=== PATIENT | female | born 1960 | race Caucasian/White ===

== ENCOUNTER → 2017-05-27 | Outpatient (CLI) | payer BC, OTHER ==
[~2017-05-27] MED LIST: ASPIRIN EC81 M1 PO; MULTIVITAMINS1 EAC7 PO; ROBAXIN 750 MG750 M1 PO; SYNTHROID100 MCG PO; ZOCOR 10 MG TAB10 MG PO; ZYRTEC10 M2 PO
== END ==
LOC: RAD 01:10
DX: Z12.31 Encounter for screening mammogram for malignant neoplasm of breast (principal)

== ENCOUNTER → 2018-05-25 | Outpatient (CLI) | payer OTHER | LOC: CAT 11:25 | DX: Z13.6 Encounter for screening for cardiovascular disorders (principal); E78.00 Pure hypercholesterolemia, unspecified ==

== ENCOUNTER → 2019-05-06 | Outpatient (CLI) | payer BC, OTHER | LOC: RAD 08:54 | DX: Z12.31 Encounter for screening mammogram for malignant neoplasm of breast (principal) ==

== ENCOUNTER → 2020-04-10 | Outpatient (CLI) | payer BC, OTHER | LOC: SJCVCIMAG 12:55 | PROVIDERS: ATTEND Internal Medicine | DX: I10 Essential (primary) hypertension (principal); I34.9 Nonrheumatic mitral valve disorder, unspecified ==

== ENCOUNTER → 2020-05-08 | Outpatient (CLI) | payer BC, OTHER | LOC: BC 08:58 | PROVIDERS: ATTEND Obstetrics & Gynecology | DX: Z12.31 Encounter for screening mammogram for malignant neoplasm of breast (principal) ==

== ENCOUNTER → 2020-10-15 | Outpatient (CLI) | payer BC, OTHER ==
[~2020-10-15] VITALS: Ht 165.1 cm; Wt 82.6 kg
[~2020-10-15] MED LIST changes: +ADVIL200 M1 PO; +BENICAR20 MG PO; +L-LYSINE1000 M1 PO; +MELOXICAM7.5 MG PO; +NORVASC10 MG PO; +TYLENOL EXTRA500 MG PO; +ZINC50 M1 PO; +[UNRECOGNIZED DRUG - CODE] PO
[2020-10-15 10:22] VITALS: BP 135/78
--- NOTE | 2020-10-15 11:06 | NUR ---
Pain Clinic Assessment: 1. History of Osteoarthritis: na History of Rheumatoid Arthritis: na 2. Height: 5 ft. 5 in. 165.1 cm. Weight: 182.0 lb. oz. 82.555 kg. Patient's BMI: 30.3 3. Vital Signs: BP: 135/78 Pulse: 98 Resp: 16 Temp: 02 Sat: 97 ECG Mon: 4. Pain Intensity: 8 5. Fall Risk: Dizziness: N Needs help standing or walking: N Fallen in the last 3 months: N Fall risk comments: 6. Patient on Blood Thinner: None 7. History of Hypertension: Y 8. Opioid Therapy greater than 6 weeks: Opiate Contract Signed: 9. Risk Assessment Tool Provided: 0-low risk 10. Functional Assessment Tool: 11. Recreational Drug Use: Drug Type: Tobacco Use: Never Smoker Tobacco Type: Amount or Packs/day: How Many Years: Alcohol Use: No Frequency: Quant:
== END ==
LOC: RAD 06:58 → PAIN 06:58
PROVIDERS: ATTEND Anesthesiology Pain Medicine
DX: M47.814 Spondylosis without myelopathy or radiculopathy, thoracic region (principal); M25.78 Osteophyte, vertebrae; I10 Essential (primary) hypertension; Z98.890 Other specified postprocedural states

== ENCOUNTER → 2020-10-18 | Outpatient (CLI) | payer BC, OTHER ==
[~2020-10-18] VITALS: Ht 165.1 cm; Wt 82.6 kg
[2020-10-18 09:17] VITALS: BP 143/69
--- NOTE | 2020-10-18 09:25 | NUR ---
Pain Clinic Assessment: 1. History of Osteoarthritis: na History of Rheumatoid Arthritis: na 2. Height: 5 ft. 5 in. 165.1 cm. Weight: 182.0 lb. oz. 82.555 kg. Patient's BMI: 30.3 3. Vital Signs: BP: 143/69 Pulse: 98 Resp: 16 Temp: 02 Sat: 98 ECG Mon: 4. Pain Intensity: 4 TO 8 5. Fall Risk: Dizziness: N Needs help standing or walking: N Fallen in the last 3 months: N Fall risk comments: 6. Patient on Blood Thinner: None 7. History of Hypertension: Y 8. Opioid Therapy greater than 6 weeks: Opiate Contract Signed: 9. Risk Assessment Tool Provided: 0-low risk 10. Functional Assessment Tool: 11. Recreational Drug Use: Never Drug Type: Tobacco Use: Never Smoker Tobacco Type: Amount or Packs/day: How Many Years: Alcohol Use: No Frequency: Quant:
== END | disposition home or self-care (01) ==
LOC: PAIN 08:52
PROVIDERS: ATTEND Anesthesiology Pain Medicine
DX: M79.18 Myalgia, other site (principal); G89.29 Other chronic pain; M47.894 Other spondylosis, thoracic region; M54.9 Dorsalgia, unspecified; Z98.890 Other specified postprocedural states; Z79.899 Other long term (current) drug therapy

== ENCOUNTER → 2020-11-19 | Outpatient (CLI) | payer BC, OTHER ==
[~2020-11-19] VITALS: Ht 165.1 cm; Wt 82.6 kg
[2020-11-19 08:45] VITALS: BP 124/72
--- NOTE | 2020-11-19 09:03 | NUR ---
Pain Clinic Assessment: 1. History of Osteoarthritis: na History of Rheumatoid Arthritis: na 2. Height: 5 ft. 5 in. 165.1 cm. Weight: 182.0 lb. oz. 82.555 kg. Patient's BMI: 30.3 3. Vital Signs: BP: 124/72 Pulse: 82 Resp: 16 Temp: 02 Sat: 100 ECG Mon: 4. Pain Intensity: 0 now 5 w/activity 5. Fall Risk: Dizziness: N Needs help standing or walking: N Fallen in the last 3 months: N Fall risk comments: 6. Patient on Blood Thinner: None 7. History of Hypertension: Y 8. Opioid Therapy greater than 6 weeks: N Opiate Contract Signed: 9. Risk Assessment Tool Provided: 0-low risk 10. Functional Assessment Tool: 11. Recreational Drug Use: Never Drug Type: Tobacco Use: Never Smoker Tobacco Type: Amount or Packs/day: How Many Years: Alcohol Use: No Frequency: Quant:
== END | disposition home or self-care (01) ==
LOC: PAIN 11-15 07:12
PROVIDERS: ATTEND Anesthesiology Pain Medicine
DX: M79.18 Myalgia, other site (principal); M54.6 Pain in thoracic spine; M47.894 Other spondylosis, thoracic region; I10 Essential (primary) hypertension; G89.29 Other chronic pain; Z98.890 Other specified postprocedural states

== ENCOUNTER → 2021-03-14 | Outpatient (CLI) | payer BC, OTHER ==
[~2021-03-14] VITALS: Ht 162.6 cm; Wt 85.0 kg
[~2021-03-14] MED LIST changes: +CRESTOR10 MG PO
[2021-03-14 09:36] VITALS: BP 126/68
--- NOTE | 2021-03-14 09:59 | NUR ---
Pain Clinic Assessment: 1. History of Osteoarthritis: na History of Rheumatoid Arthritis: na 2. Height: 5 ft. 4 in. 162.6 cm. Weight: 187.4 lb. oz. 85.004 kg. Patient's BMI: 32.2 3. Vital Signs: BP: 126/68 Pulse: 96 Resp: 16 Temp: 02 Sat: 100 ECG Mon: 4. Pain Intensity: 6 IN AFTERNOON 5. Fall Risk: Dizziness: N Needs help standing or walking: N Fallen in the last 3 months: N Fall risk comments: 6. Patient on Blood Thinner: None 7. History of Hypertension: Y 8. Opioid Therapy greater than 6 weeks: N Opiate Contract Signed: 9. Risk Assessment Tool Provided: 0-low risk 10. Functional Assessment Tool: 11. Recreational Drug Use: Never Drug Type: Tobacco Use: Never Smoker Tobacco Type: Amount or Packs/day: How Many Years: Alcohol Use: No Frequency: Quant:
== END ==
LOC: PAIN 07:01
PROVIDERS: ATTEND Anesthesiology Pain Medicine
DX: M47.814 Spondylosis without myelopathy or radiculopathy, thoracic region (principal); M51.34 Other intervertebral disc degeneration, thoracic region; M25.70 Osteophyte, unspecified joint; G89.29 Other chronic pain; Z79.891 Long term (current) use of opiate analgesic; Z79.899 Other long term (current) drug therapy

== ENCOUNTER → 2021-04-24 | Outpatient (CLI) | payer BC, OTHER ==
[~2021-04-24] VITALS: Ht 162.6 cm; Wt 86.8 kg
--- NOTE | ~2021-04-24 | HPC ---
[facility] [address] [place] [address] PAIN MANAGEMENT CONSULTATION Name: VÍCTOR DRISCOLL Room #: REG [facility]#: [id number] Admission: 04/24/21 Attend Phys: Brandon Sellers DO Discharge: Date of : 56 Report #: [id number] THIS REPORT FOR: cc: Renard Henry MD,Brandon Rosales MD, DO ~ cc: Renard Henry MD DATE OF SERVICE: 04/24/2021 REFERRING PHYSICIAN: Dr. Renard Henry. CHIEF COMPLAINT: Upper back pain, intermittent neck pain. HISTORY OF PRESENT ILLNESS: As you know, the patient is a very pleasant 60-year-old female who has been followed by my partner, Dr. Alexandre Bhatti for upper back symptoms that began about 1 year and 1 month ago. She denies specific injury or trauma. She indicates pain is in the upper back area located between the scapula and rising towards the cervical spine. The patient has undergone trigger point injections, which provided transient improvement in symptoms. She has trialled conservative treatment, [id number] medications, rest and relaxation without benefit. She has recently undergone x-ray imaging of the thoracic spine for further evaluation. The findings of the upper thoracic area is negative for any pathology. There is no arthritic changes in the area of discomfort, the patient is complaining. There is some mild thoracic spondylosis without compression fractures or listhesis in the mid and lower thoracic area, unrelated to the patient's distribution of symptoms today. She returns today in followup visit to discuss options for treatment. As you are aware, the patient has a fairly significant kyphotic curvature of the thoracic spine, which does lead to a hyperlordotic cervical spine and possible impingement of the neural foramen in the cervical region. She has been referred to our clinic to discuss other treatment options for ongoing upper back and intermittent low neck pain. ALLERGIES: No known drug allergies. CURRENT MEDICATIONS: Rosuvastatin 10 mg once a day, meloxicam 7.5 mg b.i.d., vitamin C 1 tab per day, zinc 50 mg once a day, lysine 1000 mg once a day, ibuprofen 200 mg once a day, acetaminophen ES 500 mg p.r.n., amlodipine 10 mg per day, olmesartan 20 mg per day, cetirizine 10 mg per day, aspirin 81 mg per day, multivitamin 1 tab per day, levothyroxine 100 mcg per day. IMAGING: No new imaging is available. PHYSICAL EXAMINATION: VITAL SIGNS: Blood pressure 123/76, pulse is 93, respiratory rate 16 and unlabored. The patient is 100% on room air. Height 5 feet 4 inches tall, [place] [address] PAIN MANAGEMENT CONSULTATION Name: VÍCTOR DRISCOLL Room #: REG [facility].#: [id number] Admission: 04/24/21 Attend Phys: Brandon Sellers DO Discharge: Date of : 56 Report #: [id number] weight 191.4 pounds, BMI calculated 32.8. GENERAL: Well-developed, well-nourished, well-hydrated 60-year-old female appearing stated age, pain is rated today at 3 up to 7/10. HEENT: Normocephalic, atraumatic. Pupils are round and responsive. She is wearing a mask in compliance with COVID-19 regulations. EXTREMITIES: Show no clubbing, no cyanosis. No appreciable edema. MUSCULOSKELETAL: There is palpatory tenderness noted over the paraspinal musculature of the upper thoracic area as well as the rhomboids and along the distribution of the trapezius muscle. There is no specific trigger points. There are multiple tender points and they are bilateral in nature. Upper extremity strength appears symmetrical. She is intact to light touch from C5 to T1 dermatomes. Spurling's test is equivocal on the right and positive on the left. Deep tendon reflexes are symmetrical at biceps, brachialis and triceps. The patient has a significant kyphotic curvature of the mid thoracic area just inferior to the scapula radiating to approximately T10. She also has a hyperlordotic curvature of the cervical spine. Cervical provocation testing is met with increasing pain and increasing upper back symptoms. ASSESSMENT: 1. Cervical radiculopathy. 2. Cervical spondylosis with radiculopathy. 3. Myotomal cervical radiculopathy. 4. Chronic intractable pain. PLAN: 1. Based on today's physical exam and history the patient has provided, the description the patient uses in regards to pain as well as location of symptoms, it would appear the symptoms that she is experiencing are due to cervical radiculopathy. The distribution of pain is fixed to the C5 and C6 myotomal distribution. She does not have any dermatomal distributions at physical exam today, though by history, she does report intermittent symptoms. We reviewed the patient's thoracic imaging and I am not convinced that her symptoms that she is experiencing at present are related to the thoracic spine. In fact, there is minimal movement of the upper thoracic region due to the rigidity of the structures. It would be very unusual for someone to have facet arthropathy pain in the upper thoracic area. There is some mild thoracic findings, though these are not consistent with the patient's distribution and are not provokable with examination including deep inhalation and exhalation, which would be the most movement the patient will have in the thoracic spine. The findings do correlate more with a cervical radiculopathy and we discussed that with the patient today, specifically myotomal distribution radicular symptoms. After our discussion, we then conversed about the treatment options, following was discussed with the patient today. We discussed physical therapy and traction techniques as a treatment course. We discussed also in physical therapy posture training as the patient has a fairly [facility] [address] [place] [address] PAIN MANAGEMENT CONSULTATION Name: VÍCTOR DRISCOLL Room #: REG [facility]#: [id number] Admission: 04/24/21 Attend Phys: Brandon Sellers DO Discharge: Date of : 56 Report #: [id number] significant kyphotic curvature of the thoracic spine, which is leading to cervical hyperlordosis and I believe this is combining to cause the patient's current symptoms. We also discussed medication adjustments adding a nonsedating muscle relaxant to help with the upper back pain utilizing massage therapy and acupuncture to treat the symptoms at the thoracic level and cervical level. We discussed cervical epidural injection as a way to treat the symptoms and ultimately surgical decompression of the cervical spine. After reviewing the risks and benefits of all proposed treatment options, the patient requested a cervical epidural injection under fluoroscopic guidance to be provided today. 2. The patient was advised of the risks and benefits of a cervical epidural injection. These risks include but are not necessarily limited to bleeding, bruising, infection, worsening pain, no relief of pain, also risk of temporary or permanent muscle weakness, temporary or permanent nerve damage, possible paralysis, post-dural puncture headache and . The patient states understood and wished to proceed. 3. No medication changes made at today's visit. The patient will continue current medical therapy as prior prescribed. 4. We plan to see the patient back in followup visit in about 30 days. At that time, review the efficacy of today's cervical epidural injection in terms next in the series of cervical epidural injections would be recommended. PROCEDURE NOTE: DESCRIPTION OF PROCEDURE: C7-T1 cervical epidural steroid injection under fluoroscopic guidance. This is the first procedure of the first series that the patient is undergoing. After obtaining written consent, the patient was taken back to the fluoroscopy suite and placed in a prone position with separate pillows under chest and forehead to decrease cervical lordosis. The skin overlying the cervical area was prepped and draped in an aseptic fashion. The C7-T1 vertebral interspace was identified by AP fluoroscopy. The skin and subcutaneous tissue overlying the target site of injection was anesthetized using 3 mL of 1% lidocaine. A 20-gauge 3-1/2 inch Tuohy needle was advanced under fluoroscopic guidance toward the epidural space using a midline approach. The epidural space was identified using a loss of resistance to air technique. After negative aspiration for heme or cerebrospinal fluid, a total of 0.5 mL of Omnipaque was injected. A cervical epidurogram was confirmed using AP and oblique fluoroscopy. After negative aspiration for heme or cerebrospinal fluid, 5 mL of a solution containing 2 mL of 40 mg per mL 80 mg total triamcinolone along with 3 mL of lidocaine 1% was injected in increments. Contrast spread was noted from posterior epidural space. The needle was then retracted approximately alf and the needle track was flushed with 1 mL of 1% lidocaine. There were no apparent new sensory deficits in the upper extremities present following the [facility] [address] [place] [address] PAIN MANAGEMENT CONSULTATION Name: VÍCTOR DRISCOLL Room #: REG [facility]#: [id number] Admission: 04/24/21 Attend Phys: Brandon Sellers DO Discharge: Date of : 56 Report #: [id number] procedure. A sterile bandage was placed over the injection site. The heart rate, pulse oximetry and blood pressure were continuously monitored after the procedure. There were no apparent complications. The patient tolerated the procedure well and was carefully escorted in the recovery room in stable condition. After meeting discharge criteria, the patient was discharged home. By: [id number] Brandon Sellers DO /nt
[2021-04-24 10:01] VITALS: BP 126/76
--- NOTE | 2021-04-24 10:13 | NUR ---
Pain Clinic Assessment: 1. History of Osteoarthritis: na History of Rheumatoid Arthritis: na 2. Height: 5 ft. 4 in. 162.6 cm. Weight: 191.4 lb. oz. 86.819 kg. Patient's BMI: 32.8 3. Vital Signs: BP: 126/76 Pulse: 93 Resp: 16 Temp: 02 Sat: 100 ECG Mon: 4. Pain Intensity: 3, 6-7 in afternoon 5. Fall Risk: Dizziness: N Needs help standing or walking: N Fallen in the last 3 months: N Fall risk comments: 6. Patient on Blood Thinner: None 7. History of Hypertension: Y 8. Opioid Therapy greater than 6 weeks: N Opiate Contract Signed: 9. Risk Assessment Tool Provided: 0-low risk 10. Functional Assessment Tool: 11. Recreational Drug Use: Never Drug Type: Tobacco Use: Never Smoker Tobacco Type: Amount or Packs/day: How Many Years: Alcohol Use: No Frequency: Quant:
== END | disposition home or self-care (01) ==
LOC: PAIN 08:33
PROVIDERS: ATTEND Anesthesiology Pain Medicine
DX: M47.22 Other spondylosis with radiculopathy, cervical region (principal); G89.29 Other chronic pain; M54.2 Cervicalgia; Z98.890 Other specified postprocedural states; Z79.899 Other long term (current) drug therapy

== ENCOUNTER → 2021-05-07 | Outpatient (CLI) | payer BC, OTHER | LOC: BC 09:39 | PROVIDERS: ATTEND Family Medicine | DX: Z12.31 Encounter for screening mammogram for malignant neoplasm of breast (principal); N64.89 Other specified disorders of breast ==

== ENCOUNTER → 2021-05-28 | Outpatient (CLI) | payer BC, OTHER ==
[~2021-05-28] VITALS: Ht 162.6 cm; Wt 85.9 kg
[~2021-05-28] MED LIST changes: +PRAVASTATIN SOD20 MG PO
--- NOTE | ~2021-05-28 | HPC ---
[address] [address] PAIN MANAGEMENT CONSULTATION Name: VÍCTOR DRISCOLL Room #: REG [facility]#: [id number] Admission: 05/28/21 Attend Phys: Brandon Sellers DO Discharge: Date of : 56 Report #: [id number] THIS REPORT FOR: cc: Renard Henry MD, Neal A. MD Johnson, James E. DO ~ cc: Renard Henry MD DATE OF SERVICE: 05/28/2021 REFERRING PHYSICIAN: Dr. Renard Henry. CHIEF COMPLAINT: Mid back pain. HISTORY OF PRESENT ILLNESS: As you know, the patient is a 61-year-old female referred to our service for chronic neck pain, upper back pain. She underwent a cervical epidural injection under fluoroscopic guidance at her last visit to address cervical radiculopathy. She reports that she has had 80% improvement in overall pain with that injection. She continues to experience myofascial pain in the mid thoracic area consistent with her progressively worsening thoracic kyphosis and poor posture. She returns today in followup visit to discuss treatment options to address the residual myofascial pain she is experiencing at approximately the level of the apex of the scapula radiating towards the mid portion of the medial scapula. The patient denies injury or trauma that led to continuation of symptoms. ALLERGIES: No known drug allergies. CURRENT MEDICATIONS: See chart. SOCIAL HISTORY: The patient denies tobacco, alcohol or IV or illicit drug use. She is unaccompanied today. IMAGING: No new imaging available. PHYSICAL EXAMINATION: VITAL SIGNS: Blood pressure 123/64, pulse 94, respiratory rate 18 and unlabored. The patient 98% on room air. Height 5 feet 4 inches tall, weight 189.4 pounds, BMI calculated 32.5. GENERAL: Well-developed, well-nourished, well-hydrated 61-year-old female appearing stated age, pain is rated today around 6/10. HEENT: Normocephalic, atraumatic. Pupils equal, round and responsive. She is wearing a mask in compliance with COVID-19 regulations and hospital policies. EXTREMITIES: Show no clubbing, no cyanosis, no edema. MUSCULOSKELETAL: The patient once again has palpatory tenderness over the paraspinal musculature of the upper thoracic area including the rhomboids and the paraspinal muscles of the thoracic area as well as the lower portion of the [address] [address] PAIN MANAGEMENT CONSULTATION Name: VÍCTOR DRISCOLL Room #: REG [facility]#: [id number] Admission: 05/28/21 Attend Phys: Brandon Sellers DO Discharge: Date of : 56 Report #: [id number] trapezius. No specific trigger points, multiple tender points. Spurling's test is equivocal. ASSESSMENT: 1. Cervical radiculopathy. 2. Cervical spondylosis with radiculopathy. 3. Myotomal cervical radiculopathy. 4. Myofascial thoracic pain. 5. Chronic intractable pain. PLAN: 1. The patient returns today in followup visit with 80% improvement in overall symptoms with a cervical epidural injection provided at last visit. Unfortunately, the patient continues to experience some myofascial pain involving the mid thoracic area approximately the mid portion of the scapula with distribution all the way to the approximate apex of the scapula, T7-T8 levels of the paraspinal musculature. There is no spinous process tenderness. The patient and I discussed the treatment options to address myofascial pain. We have agreed upon trigger point injections to be performed today and beginning of formalized physical therapy with modalities to address her myofascial symptoms. The patient is agreeable with plan. 2. The patient has been advised risks and benefits of treatment for myofascial pain with trigger point injections. These risks include but are not necessarily limited to bleeding, bruising, infection, worsening of pain, no relief of pain, also risk of temporary or permanent muscle weakness, temporary or permanent nerve damage, possible pneumothorax and . The patient states understood and wished to proceed. 3. The patient was provided referral to physical therapy for thoracic myofascial pain. She will be visiting the physical therapy group 3 times a week for 6 weeks. They will be providing strengthening exercises, posture training as her symptoms are related to poor posture and increasing the thoracic kyphosis secondary to poor posture and modalities such as ultrasound, percutaneous electrode nerve stimulation and acupuncture therapy. Prescription was provided to the patient today. 4. We will see the patient back in followup visit on an as needed basis. We are hopeful the patient will see good benefit with today's injection treatments. DESCRIPTION OF PROCEDURE: Trigger point injections. After obtaining written consent, the patient was placed in a seated position. By palpating using a single finger, 8 trigger points were identified that reproduced the patient's typical radiating pain pattern. Trigger points were located in the paraspinal musculature in the mid thoracic area, centered between the medial portion of the scapula and the apex of the scapula. Each of the target sites of injections were cleansed using aseptic technique. A 27-gauge 1-1/4-inch needle was then advanced towards each trigger point until the [address] [address] PAIN MANAGEMENT CONSULTATION Name: VÍCTOR DRISCOLL Room #: REG [facility]#: [id number] Admission: 05/28/21 Attend Phys: Brandon Sellers DO Discharge: Date of : 56 Report #: [id number] patient's typical radiating pain pattern was reproduced. After negative aspiration for heme, 1 mL of a solution containing 1 mL 40 mg per mL, 40 mg total triamcinolone and 7 mL of bupivacaine 0.5% was injected in a fanned out distribution at each trigger point for a total volume of 8 mL being provided. Sterile bandage was placed over the injection sites. The patient tolerated the procedure well, carefully escorted to recovery room in stable condition. After meeting our discharge criteria, the patient was discharged home. By: [id number] Brandon Sellers DO /nt
[2021-05-28 11:23] VITALS: BP 123/64
--- NOTE | 2021-05-28 11:43 | NUR ---
Pain Clinic Assessment: 1. History of Osteoarthritis: na History of Rheumatoid Arthritis: na 2. Height: 5 ft. 4 in. 162.6 cm. Weight: 189.4 lb. oz. 85.911 kg. Patient's BMI: 32.5 3. Vital Signs: BP: 123/64 Pulse: 94 Resp: 18 Temp: 02 Sat: 98 ECG Mon: 4. Pain Intensity: 6 5. Fall Risk: Dizziness: N Needs help standing or walking: N Fallen in the last 3 months: N Fall risk comments: 6. Patient on Blood Thinner: None 7. History of Hypertension: Y 8. Opioid Therapy greater than 6 weeks: N Opiate Contract Signed: 9. Risk Assessment Tool Provided: 0-low risk 10. Functional Assessment Tool: 11. Recreational Drug Use: Never Drug Type: Tobacco Use: Never Smoker Tobacco Type: Amount or Packs/day: How Many Years: Alcohol Use: No Frequency: Quant:
== END | disposition home or self-care (01) ==
LOC: PAIN 10:36
PROVIDERS: ATTEND Anesthesiology Pain Medicine
DX: M79.18 Myalgia, other site (principal); M47.22 Other spondylosis with radiculopathy, cervical region; G89.29 Other chronic pain; Z98.890 Other specified postprocedural states; Z79.899 Other long term (current) drug therapy